=== PATIENT | male | born 1965 | race African-American/Black ===

== ENCOUNTER 2021-12-09 07:26 | Emergency (ER) | payer MEDICAID ==
[~2021-12-09] VITALS: Ht 185.4 cm; Wt 138.0 kg
[~2021-12-09 07:26] MED LIST: ALBU18HF2 IH; CLOP-31 PO; FLOR MT; FLUT1DIS3 INH; FURO-152 MT; LIP40 PO; MIDO10TA MT
[2021-12-09 07:32] VITALS: BP 109/59
[2021-12-09] MEDS ORDERED: LORAZEPAM 1MG TABLET PO ONE (08:00)
[2021-12-09 08:58] LABS: EOSINOPHILS % 2.6 % (0.0-5.0); HEMATOCRIT. 42.1 % (42.0-52.0); HEMOGLOBIN. 14.2 g/dL (14.0-18.0); LYMPHOCYTES % 25.6 % (20.0-50.0); MEAN CORPUSCULAR HEMOGLOBIN 29.4 pg (28.0-32.0); MEAN CORPUSCULAR VOLUME 87.2 fL (80.0-94.0); MEAN PLATELET VOLUME 8.8 fl (7.4-10.4); MONOCYTES % 7.3 % (2.0-8.0); NEUTROPHILS % 63.5 % (40.0-76.0); PLATELET 190 x1000/uL (130-400); RED BLOOD CELL COUNT 4.83 mill/uL (4.7-6.1); RED CELL DISTRIBUTION WIDTH 13.9 % (11.6-14.6)
[2021-12-09 09:06] LABS: CHLORIDE 109 mEq/L (98-107)
[2021-12-09 09:10] LABS: ETHANOL BLOOD < 10 mg/dL
[2021-12-09] MEDS ORDERED: PARO-66 MT (10:55)
[2021-12-09] MEDS ORDERED: QUET50TA MT (10:55)
== END 2021-12-09 11:11 | disposition home or self-care (01) ==
LOC: ER 07:26
DX: F41.1 Generalized anxiety disorder (principal); Z98.890 Other specified postprocedural states; Z86.73 Personal history of transient ischemic attack (TIA), and cerebral infarction without residual deficits
CPT/HCPCS: 36415; 80053; 80307; 80320; 80329; 82962; 85025; 93005; 99284; G0480

== ENCOUNTER 2025-01-24 14:42 | Emergency (ER) | payer MEDICAID, OTHER ==
[~2025-01-24] VITALS: Ht 185.4 cm; Wt 155.0 kg
[~2025-01-24 14:42] MED LIST changes: -MIDO10TA MT; +MIDO10TA3 MT; +PARO-150 MT; +QUET50TA MT
[2025-01-24 14:47] VITALS: BP 108/63; RESP 18; TEMP 37.1; O2SAT 98
[2025-01-24 14:55] VITALS: PULSE 81; O2SAT 98
[2025-01-24 15:53] LABS: CLARITY URINE CLEAR (CLEAR); COLOR URINE YELLOW (YELLOW); GLUCOSE URINE NEGATIVE (NEGATIVE); KETONES URINE NEGATIVE (NEGATIVE); LEUKOCYTE ESTERASE URINE NEGATIVE (NEGATIVE); NITRITE URINE NEGATIVE (NEGATIVE); OCCULT BLOOD URINE NEGATIVE (NEGATIVE); PROTEIN URINE NEGATIVE (NEGATIVE); SPECIFIC GRAVITY URINE 1.018 (1.005-1.030)
[2025-01-24 16:16] LABS: EOSINOPHILS % 6.2 % (0.0-5.0); HEMATOCRIT. 41.5 % (42.0-52.0); HEMOGLOBIN. 13.5 g/dL (14.0-18.0); LYMPHOCYTES % 26.4 % (20.0-50.0); MEAN CORPUSCULAR HEMOGLOBIN 28.6 pg (28.0-32.0); MEAN CORPUSCULAR HGB CONC 32.6 g/dL (31.0-37.0); MEAN CORPUSCULAR VOLUME 87.9 fL (80.0-94.0); MEAN PLATELET VOLUME 8.4 fl (7.4-10.4); MONOCYTES % 9.5 % (2.0-8.0); NEUTROPHILS % 56.9 % (40.0-76.0); PLATELET 175 x1000/uL (130-400); RED BLOOD CELL COUNT 4.72 mill/uL (4.7-6.1); RED CELL DISTRIBUTION WIDTH 14.2 % (11.6-14.6); WHITE BLOOD COUNT 5.6 x1000/uL (4.5-11.0)
[2025-01-24 16:29] LABS: CHLORIDE 105 mEq/L (98-107); POTASSIUM 3.9 mEq/L (3.5-5.1); SODIUM 139 mEq/L (136-145)
[2025-01-24 16:30] LABS: CARBON DIOXIDE 25 mEq/L (21-32)
[2025-01-24 16:31] LABS: CALCIUM 9.5 mg/dL (8.7-10.4); TROPONIN I HIGH SENSITIVITY 4 ng/L (3.0-53)
[2025-01-24 16:35] LABS: CREATININE 1.1 mg/dL (0.6-1.3); GLUCOSE 109 mg/dL (70-105); UREA NITROGEN BLOOD 11 mg/dL (9-23)
== END 2025-01-24 17:41 | disposition home or self-care (01) ==
LOC: ER 14:42
DX: R53.1 Weakness (principal); Z86.73 Personal history of transient ischemic attack (TIA), and cerebral infarction without residual deficits; Z79.51 Long term (current) use of inhaled steroids; Z79.899 Other long term (current) drug therapy; Z79.02 Long term (current) use of antithrombotics/antiplatelets
CPT/HCPCS: 36415; 71045; 80048; 81003; 84484; 85025; 93005; 99285